=== PATIENT | female | born 1980 | race Caucasian/White ===

== ENCOUNTER 2017-06-12 12:08 | Emergency (ER) | payer MEDICAID ==
[~2017-06-12] VITALS: Ht 162.6 cm; Wt 69.0 kg
[~2017-06-12 12:08] MED LIST: AZIT-63 PO; CLIN-79 PO; IBUP-1986 PO
[2017-06-12] MEDS ORDERED: CLIN150C2 PO (12:39)
[2017-06-12 12:47] VITALS: BP 128/90
== END 2017-06-12 12:49 | disposition home or self-care (01) ==
LOC: ER 12:08
DX: H66.91 Otitis media, unspecified, right ear (principal); F14.10 Cocaine abuse, uncomplicated; Z88.0 Allergy status to penicillin; Z88.8 Allergy status to other drugs, medicaments and biological substances; Z56.0 Unemployment, unspecified; Z79.899 Other long term (current) drug therapy
CPT/HCPCS: 99283

== ENCOUNTER 2017-06-27 21:37 | Emergency (ER) | payer MEDICAID ==
[~2017-06-27] VITALS: Ht 162.6 cm; Wt 68.0 kg
[~2017-06-27 21:37] MED LIST changes: -AZIT-63 PO
[2017-06-27 21:50] VITALS: BP 123/74
== END 2017-06-27 22:57 | disposition home or self-care (01) ==
LOC: ER 21:38
DX: S71.111A Laceration without foreign body, right thigh, initial encounter (principal); F17.200 Nicotine dependence, unspecified, uncomplicated; Z88.0 Allergy status to penicillin; Z88.8 Allergy status to other drugs, medicaments and biological substances; F14.10 Cocaine abuse, uncomplicated; Z56.0 Unemployment, unspecified; W45.8XXA Other foreign body or object entering through skin, initial encounter; Y93.89 Activity, other specified; Y92.89 Other specified places as the place of occurrence of the external cause; Y99.8 Other external cause status
CPT/HCPCS: 99281